=== PATIENT | female | born 1990 | race Caucasian/White ===

== ENCOUNTER 2019-01-14 17:51 | Emergency (ER) | payer MEDICAID ==
[~2019-01-14] VITALS: Ht 154.9 cm; Wt 75.3 kg
[2019-01-14 17:56] VITALS: Ht 154.9 cm; Wt 75.3 kg
[2019-01-14 18:39] VITALS: BP 139/86
== END 2019-01-14 18:39 | disposition home or self-care (01) ==
LOC: ED 17:51
DX: S00.01XA Abrasion of scalp, initial encounter (principal); Z98.890 Other specified postprocedural states; W22.8XXA Striking against or struck by other objects, initial encounter; Y93.89 Activity, other specified; Y92.89 Other specified places as the place of occurrence of the external cause; Y99.8 Other external cause status
CPT/HCPCS: Q0162